=== PATIENT | male | born 1935 | race African-American/Black ===

== ENCOUNTER 2018-03-10 10:14 | Inpatient (IN) | payer MEDICARE, BC ==
[2018-03-10] VITALS (10 sets, daily range): BP systolic 90–135; BP diastolic 61–80
[~2018-03-10] VITALS: Ht 175.3 cm; Wt 89.1 kg
[~2018-03-10 10:14] MED LIST: AMI2 PO; ASPI-1159 PO; BIMA2.5D4 EACHEYE; CARV25TA47 PO; FURO40TA5 PO; LOSA50TA20 PO; SPIR25TA6 PO
[2018-03-10] MEDS ORDERED: FUROSEMIDE 40MG/4ML VIAL IV ONE (11:00)
[2018-03-10] MEDS ORDERED: NITROGLYCERIN 0.4MG TABLET SL SL PRN (11:00)
[2018-03-10] MEDS ORDERED: ASPIRIN 81MG TABLET PO ONE (11:00)
[2018-03-10] MEDS ORDERED: SODIUM CHLORIDE 0.9% 500 ML IV ONE (12:00)
[2018-03-10 12:24] LABS: BASOPHILS % 0.4 % (0.0-2.0); HEMATOCRIT. 41.5 % (42.0-52.0); HEMOGLOBIN. 13.2 g/dL (14.0-18.0); MEAN CORPUSCULAR HEMOGLOBIN 28.4 pg (28.0-32.0); MEAN CORPUSCULAR VOLUME 88.9 fL (80.0-94.0); MEAN PLATELET VOLUME 9.3 fl (7.4-10.4); MONOCYTES % 10.2 % (2.0-8.0); NEUTROPHILS % 70.4 % (40.0-76.0); PLATELET 154 x1000/uL (130-400); RED BLOOD CELL COUNT 4.66 mill/uL (4.7-6.1); RED CELL DISTRIBUTION WIDTH 17.9 % (11.6-14.6)
[2018-03-10] MEDS ORDERED: SODIUM CHLORIDE 0.9% 250 ML IV ONE (12:30)
[2018-03-10 12:31] LABS: CHLORIDE 102 mEq/L (98-107)
[2018-03-10 12:32] LABS: INR 1.4
[2018-03-10] MEDS: ASPIRIN 81MG EC TABLET PO SCH (15:45)
[2018-03-10] MEDS: CARVEDILOL 3.125 MG TABLET PO SCH (15:46)
[2018-03-10] MEDS: FUROSEMIDE 40MG/4ML VIAL IVP SCH (17:56)
[2018-03-10] MEDS: DOBUTAMINE 250MG PREMIX 250 ML IV SCH (21:10)
[2018-03-11] VITALS (12 sets, daily range): BP systolic 96–122; BP diastolic 48–83
[2018-03-11 06:26] LABS: BASOPHILS % 0.3 % (0.0-2.0); EOSINOPHILS % 1.9 % (0.0-5.0); HEMATOCRIT. 44.6 % (42.0-52.0); HEMOGLOBIN. 14.4 g/dL (14.0-18.0); LYMPHOCYTES % 17.4 % (20.0-50.0); MEAN CORPUSCULAR HEMOGLOBIN 28.6 pg (28.0-32.0); MEAN CORPUSCULAR VOLUME 88.5 fL (80.0-94.0); MEAN PLATELET VOLUME 9.1 fl (7.4-10.4); MONOCYTES % 9.5 % (2.0-8.0); NEUTROPHILS % 70.9 % (40.0-76.0); PLATELET 160 x1000/uL (130-400); RED BLOOD CELL COUNT 5.04 mill/uL (4.7-6.1); RED CELL DISTRIBUTION WIDTH 17.8 % (11.6-14.6)
[2018-03-11] MEDS: FUROSEMIDE 40MG/4ML VIAL IVP SCH ×2 (06:32→17:23)
[2018-03-11 06:49] LABS: CREATINE KINASE MB FRACTION 2.8 ng/mL (0.5-3.6)
[2018-03-11 06:51] LABS: CHLORIDE 104 mEq/L (98-107)
[2018-03-11 06:58] LABS: PHOSPHORUS 3.9 mg/dL (2.5-4.9)
[2018-03-11 06:59] LABS: LDL CHOLESTEROL 75 mg/dL (5-100)
[2018-03-11 07:00] LABS: CREATINE KINASE 111 IU/L (39-308); HDL CHOLESTEROL 28 mg/dL (40-59)
[2018-03-11] MEDS: ASPIRIN 81MG EC TABLET PO SCH (09:00)
[2018-03-11] MEDS: CARVEDILOL 3.125 MG TABLET PO SCH ×2 (10:30→20:05)
[2018-03-11] MEDS: DOBUTAMINE 250MG PREMIX 250 ML IV SCH (20:04)
[2018-03-12] VITALS (12 sets, daily range): BP systolic 100–137; BP diastolic 50–80
[2018-03-12] MEDS: FUROSEMIDE 40MG/4ML VIAL IVP SCH ×2 (06:34→17:24)
[2018-03-12 06:47] LABS: BASOPHILS % 0.3 % (0.0-2.0); EOSINOPHILS % 0.7 % (0.0-5.0); HEMATOCRIT. 41.1 % (42.0-52.0); HEMOGLOBIN. 13.1 g/dL (14.0-18.0); LYMPHOCYTES % 16.3 % (20.0-50.0); MEAN CORPUSCULAR HEMOGLOBIN 28.4 pg (28.0-32.0); MEAN PLATELET VOLUME 9.3 fl (7.4-10.4); NEUTROPHILS % 69.7 % (40.0-76.0); PLATELET 154 x1000/uL (130-400); RED BLOOD CELL COUNT 4.62 mill/uL (4.7-6.1); RED CELL DISTRIBUTION WIDTH 17.7 % (11.6-14.6)
[2018-03-12 07:24] LABS: CHLORIDE 101 mEq/L (98-107)
[2018-03-12 07:32] LABS: PHOSPHORUS 3.4 mg/dL (2.5-4.9)
[2018-03-12] MEDS: ASPIRIN 81MG EC TABLET PO SCH (09:06)
[2018-03-12] MEDS: CARVEDILOL 3.125 MG TABLET PO SCH ×2 (09:06→21:15)
[2018-03-12] MEDS: GUAIFENESIN 600MG ER TABLET PO SCH ×2 (10:28→21:15)
[2018-03-12] MEDS ORDERED: ACETYLCYSTEINE 200MG/ML 20% VIAL 4ML PO SCH (14:00)
[2018-03-12] MEDS ORDERED: THROAT LOZENGES-BENZOCAINE/MENTH/CETYLPYRD CL LOZENGES MM PRN (17:30)
[2018-03-12] MEDS: DOBUTAMINE 250MG PREMIX 250 ML IV SCH (22:18)
[2018-03-13] VITALS (12 sets, daily range): BP systolic 88–115; BP diastolic 55–80
[2018-03-13] MEDS: FUROSEMIDE 40MG/4ML VIAL IVP SCH ×2 (06:20→17:15)
[2018-03-13 06:39] LABS: BASOPHILS % 0.1 % (0.0-2.0); EOSINOPHILS % 1.9 % (0.0-5.0); HEMATOCRIT. 41.7 % (42.0-52.0); HEMOGLOBIN. 13.4 g/dL (14.0-18.0); LYMPHOCYTES % 16.5 % (20.0-50.0); MEAN CORPUSCULAR HEMOGLOBIN 28.3 pg (28.0-32.0); MEAN CORPUSCULAR VOLUME 88.1 fL (80.0-94.0); MEAN PLATELET VOLUME 9.3 fl (7.4-10.4); MONOCYTES % 9.6 % (2.0-8.0); NEUTROPHILS % 71.9 % (40.0-76.0); PLATELET 172 x1000/uL (130-400); RED BLOOD CELL COUNT 4.73 mill/uL (4.7-6.1); RED CELL DISTRIBUTION WIDTH 17.9 % (11.6-14.6)
[2018-03-13 08:20] LABS: PHOSPHORUS 3.4 mg/dL (2.5-4.9)
[2018-03-13] MEDS: GUAIFENESIN 600MG ER TABLET PO SCH ×2 (08:47→21:37)
[2018-03-13] MEDS: ASPIRIN 81MG EC TABLET PO SCH (08:47)
[2018-03-13] MEDS: CARVEDILOL 3.125 MG TABLET PO SCH ×2 (08:50→21:00)
[2018-03-13] MEDS ORDERED: SODIUM CHLORIDE 0.9% 250 ML IV ONE (17:45)
[2018-03-13] MEDS: DOBUTAMINE 250MG PREMIX 250 ML IV SCH (21:38)
[2018-03-14] VITALS (12 sets, daily range): BP systolic 104–128; BP diastolic 58–90
[2018-03-14 06:14] LABS: BASOPHILS % 0.4 % (0.0-2.0); EOSINOPHILS % 2.2 % (0.0-5.0); HEMATOCRIT. 41.8 % (42.0-52.0); HEMOGLOBIN. 13.4 g/dL (14.0-18.0); LYMPHOCYTES % 19.6 % (20.0-50.0); MEAN CORPUSCULAR HEMOGLOBIN 28.4 pg (28.0-32.0); MEAN CORPUSCULAR VOLUME 88.5 fL (80.0-94.0); MONOCYTES % 8.7 % (2.0-8.0); NEUTROPHILS % 69.1 % (40.0-76.0); PLATELET 160 x1000/uL (130-400); RED BLOOD CELL COUNT 4.73 mill/uL (4.7-6.1); RED CELL DISTRIBUTION WIDTH 17.6 % (11.6-14.6)
[2018-03-14] MEDS: GUAIFENESIN 600MG ER TABLET PO SCH ×2 (09:00→21:05)
[2018-03-14] MEDS: CARVEDILOL 3.125 MG TABLET PO SCH ×2 (09:00→21:05)
[2018-03-14] MEDS: ASPIRIN 81MG EC TABLET PO SCH (09:00)
[2018-03-14] MEDS: FUROSEMIDE 40MG/4ML VIAL IVP SCH ×2 (09:49→17:51)
[2018-03-14] MEDS ORDERED: PROPOFOL 200MG/20ML VIAL IV ONE (10:06)
[2018-03-14] MEDS ORDERED: LIDOCAINE HCL/PF 1% 10 MG/ML 5ML VIAL ONE (10:07)
[2018-03-14] MEDS ORDERED: SIMETHICONE 40 MG/0.6 ML 30ML ONE (10:23)
[2018-03-14 11:04] LABS: PHOSPHORUS 2.6 mg/dL (2.5-4.9)
[2018-03-14] MEDS: DOBUTAMINE 250MG PREMIX 250 ML IV SCH (21:06)
[2018-03-15] VITALS (12 sets, daily range): BP systolic 94–117; BP diastolic 50–88
[2018-03-15] MEDS: FUROSEMIDE 40MG/4ML VIAL IVP SCH ×2 (06:54→18:18)
[2018-03-15 07:22] LABS: BASOPHILS % 0.2 % (0.0-2.0); EOSINOPHILS % 1.9 % (0.0-5.0); HEMATOCRIT. 40.3 % (42.0-52.0); HEMOGLOBIN. 12.9 g/dL (14.0-18.0); LYMPHOCYTES % 16.8 % (20.0-50.0); MEAN CORPUSCULAR HEMOGLOBIN 28.1 pg (28.0-32.0); MEAN CORPUSCULAR VOLUME 87.5 fL (80.0-94.0); MEAN PLATELET VOLUME 9.3 fl (7.4-10.4); MONOCYTES % 12.1 % (2.0-8.0); PLATELET 170 x1000/uL (130-400); RED CELL DISTRIBUTION WIDTH 17.3 % (11.6-14.6)
[2018-03-15 08:04] LABS: PHOSPHORUS 2.7 mg/dL (2.5-4.9)
[2018-03-15] MEDS: CARVEDILOL 3.125 MG TABLET PO SCH ×2 (09:29→20:54)
[2018-03-15] MEDS: ASPIRIN 81MG EC TABLET PO SCH (09:29)
[2018-03-15] MEDS: GUAIFENESIN 600MG ER TABLET PO SCH ×2 (09:29→20:55)
[2018-03-15] MEDS ORDERED: PANTOPRAZOLE SODIUM 40 MG/VIAL IV SCH (11:15)
[2018-03-15] MEDS: DOBUTAMINE 250MG PREMIX 250 ML IV SCH (20:55)
[2018-03-16] VITALS (15 sets, daily range): BP systolic 92–125; BP diastolic 54–84
[2018-03-16] MEDS: FUROSEMIDE 40MG/4ML VIAL IVP SCH (06:19)
[2018-03-16 07:19] LABS: BASOPHILS % 0.5 % (0.0-2.0); EOSINOPHILS % 2.1 % (0.0-5.0); HEMATOCRIT. 41.4 % (42.0-52.0); HEMOGLOBIN. 13.4 g/dL (14.0-18.0); LYMPHOCYTES % 26.5 % (20.0-50.0); MEAN CORPUSCULAR HEMOGLOBIN 28.4 pg (28.0-32.0); MEAN CORPUSCULAR VOLUME 87.8 fL (80.0-94.0); MEAN PLATELET VOLUME 9.4 fl (7.4-10.4); MONOCYTES % 10.6 % (2.0-8.0); NEUTROPHILS % 60.3 % (40.0-76.0); PLATELET 153 x1000/uL (130-400); RED BLOOD CELL COUNT 4.72 mill/uL (4.7-6.1); RED CELL DISTRIBUTION WIDTH 17.8 % (11.6-14.6)
[2018-03-16] MEDS: OMEPRAZOLE 20MG CAPSULE EXTENDED RELEASE PO SCH (07:45)
[2018-03-16] MEDS: GUAIFENESIN 600MG ER TABLET PO SCH ×2 (09:37→20:39)
[2018-03-16] MEDS: CARVEDILOL 3.125 MG TABLET PO SCH ×2 (09:38→20:34)
[2018-03-16] MEDS: ASPIRIN 81MG EC TABLET PO SCH (09:38)
[2018-03-16] MEDS ORDERED: AMIODARONE HCL 200 MG TABLET PO SCH (10:00)
[2018-03-16] MEDS: LOSARTAN POTASSIUM 25 MG TABLET PO SCH (10:15)
[2018-03-16] MEDS: SPIRONOLACTONE 25MG TABLET PO SCH (11:03)
[2018-03-16] MEDS: FUROSEMIDE 40MG TABLET PO SCH (20:34)
[2018-03-17] VITALS (11 sets, daily range): BP systolic 95–118; BP diastolic 62–74
[2018-03-17 05:48] LABS: HEMATOCRIT. 43.4 % (42.0-52.0); HEMOGLOBIN. 13.9 g/dL (14.0-18.0); MEAN CORPUSCULAR HEMOGLOBIN 28.5 pg (28.0-32.0); MEAN CORPUSCULAR VOLUME 88.9 fL (80.0-94.0); MEAN PLATELET VOLUME 10.2 fl (7.4-10.4); RED BLOOD CELL COUNT 4.88 mill/uL (4.7-6.1); RED CELL DISTRIBUTION WIDTH 17.8 % (11.6-14.6)
[2018-03-17 05:59] LABS: CHLORIDE 99 mEq/L (98-107)
[2018-03-17] MEDS: FUROSEMIDE 40MG TABLET PO SCH (08:16)
[2018-03-17] MEDS: GUAIFENESIN 600MG ER TABLET PO SCH (08:16)
[2018-03-17] MEDS: OMEPRAZOLE 20MG CAPSULE EXTENDED RELEASE PO SCH (08:16)
[2018-03-17] MEDS: ASPIRIN 81MG EC TABLET PO SCH (08:17)
[2018-03-17] MEDS: SPIRONOLACTONE 25MG TABLET PO SCH (08:17)
[2018-03-17] MEDS: LOSARTAN POTASSIUM 25 MG TABLET PO SCH (08:17)
[2018-03-17] MEDS: CARVEDILOL 3.125 MG TABLET PO SCH (08:17)
[2018-03-17 12:11] LABS: PLATELET ESTIMATE NORMAL
[2018-03-17 12:12] LABS: PLATELET 197 x1000/uL (130-400)
== END 2018-03-17 12:45 | disposition home health service (06) | DRG 682 ==
LOC: ER 10:43 → EDBEDREQ 12:32 → EDBEDREQSVC 12:32 → EDBEDREQTM 12:32 → MERGE 12:40 → 5EST 12:40 → EDBEDREQTM 12:44 → EDBEDREQ 12:44 → ENRESERV 12:56 → ER 13:51
PROVIDERS: ADMIT Internal Medicine; ATTEND Internal Medicine
PROC: 0DB68ZX Excision of Stomach, Via Natural or Artificial Opening Endoscopic, Diagnostic (ICD-10-PCS; principal; 2018-03-14 10:00)
DX: N17.9 Acute kidney failure, unspecified (principal); I50.23 Acute on chronic systolic (congestive) heart failure; I13.0 Hypertensive heart and chronic kidney disease with heart failure and stage 1 through stage 4 chronic kidney disease, or unspecified chronic kidney disease; E87.1 Hypo-osmolality and hyponatremia; I42.0 Dilated cardiomyopathy; I48.0 Paroxysmal atrial fibrillation; N18.9 Chronic kidney disease, unspecified; I25.10 Atherosclerotic heart disease of native coronary artery without angina pectoris; E66.9 Obesity, unspecified; E78.00 Pure hypercholesterolemia, unspecified; E78.5 Hyperlipidemia, unspecified; G47.30 Sleep apnea, unspecified; K29.50 Unspecified chronic gastritis without bleeding; K44.9 Diaphragmatic hernia without obstruction or gangrene; R13.10 Dysphagia, unspecified; R31.0 Gross hematuria; Z77.090 Contact with and (suspected) exposure to asbestos; I49.5 Sick sinus syndrome; T50.2X5A Adverse effect of carbonic-anhydrase inhibitors, benzothiadiazides and other diuretics, initial encounter; I95.9 Hypotension, unspecified; R26.81 Unsteadiness on feet; R63.4 Abnormal weight loss; Z79.82 Long term (current) use of aspirin; Z79.899 Other long term (current) drug therapy; Z85.46 Personal history of malignant neoplasm of prostate; Z68.29 Body mass index [BMI] 29.0-29.9, adult; Y92.89 Other specified places as the place of occurrence of the external cause; Z95.810 Presence of automatic (implantable) cardiac defibrillator
CPT/HCPCS: 36415; 71045; 80048; 80053; 80061; 82550; 82553; 83735; 83880; 84100; 84134; 84484; 85025; 85610; 88305; 88312; 88313; 92610; 93005; 93970; 96360; 99291; C9113; J1250; J1940; J2704; J3490; J7040; J7050; A4315

== ENCOUNTER 2018-04-01 14:34 | Inpatient (IN) | payer MEDICARE, BC ==
[~2018-04-01] VITALS: Ht 175.3 cm; Wt 90.7 kg
[~2018-04-01 14:34] MED LIST changes: -AMI2 PO; -BIMA2.5D4 EACHEYE; -CARV25TA47 PO; -FURO40TA5 PO
[2018-04-01 16:31] LABS: BASOPHILS % 0.1 % (0.0-2.0); EOSINOPHILS % 0.7 % (0.0-5.0); HEMATOCRIT. 46.2 % (42.0-52.0); HEMOGLOBIN. 14.7 g/dL (14.0-18.0); LYMPHOCYTES % 13.1 % (20.0-50.0); MEAN CORPUSCULAR HEMOGLOBIN 28.6 pg (28.0-32.0); MEAN CORPUSCULAR VOLUME 89.7 fL (80.0-94.0); MEAN PLATELET VOLUME 9.9 fl (7.4-10.4); NEUTROPHILS % 78.1 % (40.0-76.0); PLATELET 170 x1000/uL (130-400); RED BLOOD CELL COUNT 5.15 mill/uL (4.7-6.1); RED CELL DISTRIBUTION WIDTH 18.8 % (11.6-14.6)
[2018-04-01 16:38] LABS: CHLORIDE 102 mEq/L (98-107); INR 1.5; PROTHROMBIN TIME 15.3 sec (9.1-11.1)
[2018-04-01 16:46] LABS: ETHANOL BLOOD < 10 mg/dL
[2018-04-01] MEDS ORDERED: DOBUTAMINE 250MG PREMIX 250 ML IV NR (17:15)
[2018-04-01] MEDS ORDERED: POTASSIUM CHLORIDE 20MEQ TABLET SR PO NR (17:15)
[2018-04-01] MEDS ORDERED: FUROSEMIDE 40MG/4ML VIAL IVP NR (17:15)
[2018-04-01] MEDS ORDERED: FUROSEMIDE 20MG/2ML VIAL IVP ONE (18:15)
[2018-04-01 21:30] VITALS: BP 107/60
[2018-04-01 21:46] VITALS: BP 107/60
[2018-04-01] MEDS ORDERED: DOBUTAMINE 250MG PREMIX 250 ML IV SCH ×2 (22:30)
[2018-04-02] VITALS (12 sets, daily range): BP systolic 90–125; BP diastolic 53–80
[2018-04-02] MEDS: FUROSEMIDE 40MG/4ML VIAL IVP SCH ×2 (09:33→17:44)
[2018-04-02] MEDS: POTASSIUM CHLORIDE 20MEQ TABLET SR PO SCH ×2 (09:33→17:52)
[2018-04-02] MEDS: DOCUSATE SODIUM 250MG CAPSULE PO SCH (10:00)
[2018-04-02] MEDS: SPIRONOLACTONE 25MG TABLET PO SCH (10:52)
[2018-04-02] MEDS: ASPIRIN 81MG TABLET PO SCH (10:52)
[2018-04-02] MEDS: LOSARTAN POTASSIUM 50 MG TABLET PO SCH (10:52)
[2018-04-02 14:03] LABS: BASOPHILS % 0.2 % (0.0-2.0); EOSINOPHILS % 1.1 % (0.0-5.0); HEMATOCRIT. 43.1 % (42.0-52.0); LYMPHOCYTES % 10.6 % (20.0-50.0); MEAN CORPUSCULAR HEMOGLOBIN 28.5 pg (28.0-32.0); MEAN CORPUSCULAR VOLUME 87.7 fL (80.0-94.0); MEAN PLATELET VOLUME 10.2 fl (7.4-10.4); MONOCYTES % 6.2 % (2.0-8.0); NEUTROPHILS % 81.9 % (40.0-76.0); PLATELET 165 x1000/uL (130-400); RED BLOOD CELL COUNT 4.92 mill/uL (4.7-6.1); RED CELL DISTRIBUTION WIDTH 17.9 % (11.6-14.6)
[2018-04-02 14:10] LABS: CHLORIDE 104 mEq/L (98-107)
[2018-04-02 14:18] LABS: CREATINE KINASE 108 IU/L (39-308)
[2018-04-02 14:21] LABS: CREATINE KINASE MB FRACTION 2.3 ng/mL (0.5-3.6)
[2018-04-02] MEDS: DOBUTAMINE 250MG PREMIX 250 ML IV SCH ×2 (14:24→19:16)
[2018-04-03] VITALS (12 sets, daily range): BP systolic 92–152; BP diastolic 50–78
[2018-04-03] MEDS: DOCUSATE SODIUM 250MG CAPSULE PO SCH (09:00)
[2018-04-03] MEDS: LOSARTAN POTASSIUM 50 MG TABLET PO SCH (09:00)
[2018-04-03 09:10] LABS: HEMATOCRIT. 42.6 % (42.0-52.0); HEMOGLOBIN. 13.7 g/dL (14.0-18.0); MEAN CORPUSCULAR HEMOGLOBIN 28.4 pg (28.0-32.0); MEAN PLATELET VOLUME 9.8 fl (7.4-10.4); PLATELET 165 x1000/uL (130-400); RED BLOOD CELL COUNT 4.84 mill/uL (4.7-6.1); RED CELL DISTRIBUTION WIDTH 18.4 % (11.6-14.6)
[2018-04-03 09:24] LABS: CHLORIDE 103 mEq/L (98-107)
[2018-04-03 09:33] LABS: PHOSPHORUS 2.9 mg/dL (2.5-4.9)
[2018-04-03] MEDS: POTASSIUM CHLORIDE 20MEQ TABLET SR PO SCH ×2 (12:09→16:55)
[2018-04-03] MEDS: ASPIRIN 81MG TABLET PO SCH (12:09)
[2018-04-03] MEDS: SPIRONOLACTONE 25MG TABLET PO SCH (12:17)
[2018-04-03] MEDS: FUROSEMIDE 40MG/4ML VIAL IVP SCH ×2 (12:17→16:54)
[2018-04-03] MEDS: DOBUTAMINE 250MG PREMIX 250 ML IV SCH (13:17)
[2018-04-03 16:17] LABS: PLATELET ESTIMATE NORMAL
[2018-04-04] VITALS (12 sets, daily range): BP systolic 97–118; BP diastolic 58–73
[2018-04-04 08:24] LABS: BASOPHILS % 0.3 % (0.0-2.0); HEMATOCRIT. 42.4 % (42.0-52.0); HEMOGLOBIN. 13.8 g/dL (14.0-18.0); LYMPHOCYTES % 7.5 % (20.0-50.0); MEAN CORPUSCULAR HEMOGLOBIN 28.5 pg (28.0-32.0); MEAN CORPUSCULAR VOLUME 87.7 fL (80.0-94.0); MEAN PLATELET VOLUME 9.7 fl (7.4-10.4); NEUTROPHILS % 81.2 % (40.0-76.0); PLATELET 163 x1000/uL (130-400); RED BLOOD CELL COUNT 4.83 mill/uL (4.7-6.1); RED CELL DISTRIBUTION WIDTH 17.9 % (11.6-14.6)
[2018-04-04] MEDS: ASPIRIN 81MG TABLET PO SCH (08:59)
[2018-04-04] MEDS: MEGESTROL ACETATE 400 MG/10 ML UDC PO SCH (08:59)
[2018-04-04] MEDS: LOSARTAN POTASSIUM 50 MG TABLET PO SCH (09:00)
[2018-04-04] MEDS: FUROSEMIDE 40MG/4ML VIAL IVP SCH ×2 (09:01→17:22)
[2018-04-04] MEDS: DOCUSATE SODIUM 250MG CAPSULE PO SCH (09:01)
[2018-04-04] MEDS: SPIRONOLACTONE 25MG TABLET PO SCH (09:02)
[2018-04-04] MEDS: DOBUTAMINE 250MG PREMIX 250 ML IV SCH (17:22)
[2018-04-04 21:57] LABS: CLARITY URINE CLEAR (CLEAR); COLOR URINE YELLOW (YELLOW); KETONES URINE NEGATIVE (NEGATIVE); LEUKOCYTE ESTERASE URINE 3+ (NEGATIVE); NITRITE URINE NEGATIVE (NEGATIVE); OCCULT BLOOD URINE NEGATIVE (NEGATIVE); PROTEIN URINE NEGATIVE (NEGATIVE); SPECIFIC GRAVITY URINE 1.009 (1.005-1.030)
[2018-04-05] VITALS (11 sets, daily range): BP systolic 102–138; BP diastolic 59–73
[2018-04-05 07:04] LABS: BASOPHILS % 0.1 % (0.0-2.0); HEMATOCRIT. 42.4 % (42.0-52.0); HEMOGLOBIN. 13.7 g/dL (14.0-18.0); LYMPHOCYTES % 11.2 % (20.0-50.0); MEAN CORPUSCULAR HEMOGLOBIN 28.1 pg (28.0-32.0); MEAN CORPUSCULAR VOLUME 87.1 fL (80.0-94.0); MEAN PLATELET VOLUME 9.5 fl (7.4-10.4); MONOCYTES % 6.5 % (2.0-8.0); NEUTROPHILS % 75.2 % (40.0-76.0); PLATELET 158 x1000/uL (130-400); RED BLOOD CELL COUNT 4.87 mill/uL (4.7-6.1); RED CELL DISTRIBUTION WIDTH 18.6 % (11.6-14.6)
[2018-04-05] MEDS: MEGESTROL ACETATE 400 MG/10 ML UDC PO SCH (08:16)
[2018-04-05] MEDS: FUROSEMIDE 40MG/4ML VIAL IVP SCH ×2 (08:17→17:52)
[2018-04-05] MEDS: DOCUSATE SODIUM 250MG CAPSULE PO SCH (08:17)
[2018-04-05] MEDS: LOSARTAN POTASSIUM 50 MG TABLET PO SCH (08:18)
[2018-04-05] MEDS: ASPIRIN 81MG TABLET PO SCH (08:18)
[2018-04-05] MEDS: SPIRONOLACTONE 25MG TABLET PO SCH (08:18)
[2018-04-05] MEDS: DOBUTAMINE 250MG PREMIX 250 ML IV SCH (09:18)
[2018-04-06] VITALS (12 sets, daily range): BP systolic 95–125; BP diastolic 48–72
[2018-04-06] MEDS: DOBUTAMINE 250MG PREMIX 250 ML IV SCH (02:58)
[2018-04-06 07:41] LABS: BASOPHILS % 0.2 % (0.0-2.0); EOSINOPHILS % 7.5 % (0.0-5.0); HEMOGLOBIN. 13.6 g/dL (14.0-18.0); LYMPHOCYTES % 8.6 % (20.0-50.0); MEAN CORPUSCULAR HEMOGLOBIN 28.3 pg (28.0-32.0); MEAN CORPUSCULAR VOLUME 87.6 fL (80.0-94.0); MEAN PLATELET VOLUME 9.8 fl (7.4-10.4); MONOCYTES % 5.9 % (2.0-8.0); NEUTROPHILS % 77.8 % (40.0-76.0); PLATELET 162 x1000/uL (130-400); RED BLOOD CELL COUNT 4.79 mill/uL (4.7-6.1); RED CELL DISTRIBUTION WIDTH 18.4 % (11.6-14.6)
[2018-04-06 08:00] LABS: CHLORIDE 102 mEq/L (98-107)
[2018-04-06] MEDS: ASPIRIN 81MG TABLET PO SCH (08:54)
[2018-04-06] MEDS: SPIRONOLACTONE 25MG TABLET PO SCH (08:54)
[2018-04-06] MEDS: FUROSEMIDE 40MG/4ML VIAL IVP SCH (08:54)
[2018-04-06] MEDS: DOCUSATE SODIUM 250MG CAPSULE PO SCH (08:54)
[2018-04-06] MEDS: MEGESTROL ACETATE 400 MG/10 ML UDC PO SCH (08:54)
[2018-04-06] MEDS: LOSARTAN POTASSIUM 50 MG TABLET PO SCH (09:42)
[2018-04-06] MEDS ORDERED: POTASSIUM CHLORIDE 20MEQ TABLET SR PO NR (10:45)
[2018-04-06] MEDS: FUROSEMIDE 80MG TABLET PO SCH ×2 (11:13→17:49)
[2018-04-06] MEDS ORDERED: DOBUTAMINE 250MG PREMIX 250 ML IV SCH (12:00)
[2018-04-06 19:37] LABS: CHLORIDE 102 mEq/L (98-107)
[2018-04-07] VITALS (10 sets, daily range): BP systolic 99–125; BP diastolic 48–75
[2018-04-07 07:15] LABS: BASOPHILS % 0.5 % (0.0-2.0); EOSINOPHILS % 8.4 % (0.0-5.0); HEMOGLOBIN. 15.4 g/dL (14.0-18.0); LYMPHOCYTES % 14.9 % (20.0-50.0); MEAN CORPUSCULAR HEMOGLOBIN 28.3 pg (28.0-32.0); MEAN CORPUSCULAR VOLUME 88.5 fL (80.0-94.0); MEAN PLATELET VOLUME 9.4 fl (7.4-10.4); NEUTROPHILS % 68.2 % (40.0-76.0); PLATELET 170 x1000/uL (130-400); RED BLOOD CELL COUNT 5.43 mill/uL (4.7-6.1); RED CELL DISTRIBUTION WIDTH 18.5 % (11.6-14.6)
[2018-04-07] MEDS: MEGESTROL ACETATE 400 MG/10 ML UDC PO SCH (08:42)
[2018-04-07] MEDS: SPIRONOLACTONE 25MG TABLET PO SCH (08:43)
[2018-04-07] MEDS: DOCUSATE SODIUM 250MG CAPSULE PO SCH (08:43)
[2018-04-07] MEDS: ASPIRIN 81MG TABLET PO SCH (08:43)
[2018-04-07 08:59] LABS: CHLORIDE 99 mEq/L (98-107)
[2018-04-07] MEDS ORDERED: LOSARTAN POTASSIUM 25 MG TABLET PO SCH (09:00)
[2018-04-07] MEDS: FUROSEMIDE 40MG TABLET PO SCH ×2 (10:10→17:30)
[2018-04-07 13:46] LABS: CLARITY URINE CLEAR (CLEAR); COLOR URINE YELLOW (YELLOW); KETONES URINE NEGATIVE (NEGATIVE); LEUKOCYTE ESTERASE URINE NEGATIVE (NEGATIVE); NITRITE URINE NEGATIVE (NEGATIVE); OCCULT BLOOD URINE NEGATIVE (NEGATIVE); PH URINE 7.5 (4.5-8.0); PROTEIN URINE NEGATIVE (NEGATIVE); SPECIFIC GRAVITY URINE 1.012 (1.005-1.030)
== END 2018-04-07 17:45 | DRG 682 ==
LOC: ER 16:09 → 5EST 18:05 → ENRESERV 18:51
PROVIDERS: ADMIT Internal Medicine; ATTEND Internal Medicine
DX: N17.9 Acute kidney failure, unspecified (principal); I50.23 Acute on chronic systolic (congestive) heart failure; I13.0 Hypertensive heart and chronic kidney disease with heart failure and stage 1 through stage 4 chronic kidney disease, or unspecified chronic kidney disease; I42.0 Dilated cardiomyopathy; N18.9 Chronic kidney disease, unspecified; I48.0 Paroxysmal atrial fibrillation; G47.33 Obstructive sleep apnea (adult) (pediatric); E66.9 Obesity, unspecified; R26.81 Unsteadiness on feet; E78.00 Pure hypercholesterolemia, unspecified; I49.5 Sick sinus syndrome; I95.9 Hypotension, unspecified; E78.5 Hyperlipidemia, unspecified; E87.6 Hypokalemia; I25.10 Atherosclerotic heart disease of native coronary artery without angina pectoris; R29.6 Repeated falls; Z79.82 Long term (current) use of aspirin; Z85.46 Personal history of malignant neoplasm of prostate; Z95.810 Presence of automatic (implantable) cardiac defibrillator; Z79.899 Other long term (current) drug therapy; Z68.29 Body mass index [BMI] 29.0-29.9, adult
CPT/HCPCS: 36415; 71045; 78582; 80048; 80053; 81003; 82550; 82553; 82570; 83735; 83880; 83935; 84100; 84300; 84443; 84484; 85025; 85379; 85610; 92523; 93005; 93970; 93971; 96374; 97116; 97162; 97166; 97530; 99285; A9558; G0482; J1250; J1940

== ENCOUNTER 2018-04-07 17:50 | Inpatient (IN) | payer MEDICARE, BC ==
[~2018-04-07] VITALS: Ht 167.6 cm; Wt 135.8 kg
[2018-04-07 18:00] VITALS: BP 97/64
[2018-04-07 20:00] VITALS: BP_SYST 91; BP_SYST 94; BP_DIAS 55; BP_DIAS 56; BP_DIAS 63
[2018-04-07] MEDS: FUROSEMIDE 40MG TABLET PO SCH (22:16)
[2018-04-08 06:00] VITALS: BP 99/65
[2018-04-08 08:00] VITALS: BP 85/54
[2018-04-08 08:25] LABS: BASOPHILS % 1.2 % (0.0-2.0); EOSINOPHILS % 11.2 % (0.0-5.0); HEMATOCRIT. 49.9 % (42.0-52.0); HEMOGLOBIN. 16.1 g/dL (14.0-18.0); MEAN CORPUSCULAR HEMOGLOBIN 28.3 pg (28.0-32.0); MEAN CORPUSCULAR VOLUME 87.9 fL (80.0-94.0); MONOCYTES % 7.6 % (2.0-8.0); PLATELET 198 x1000/uL (130-400); RED BLOOD CELL COUNT 5.68 mill/uL (4.7-6.1); RED CELL DISTRIBUTION WIDTH 18.8 % (11.6-14.6)
[2018-04-08 08:54] LABS: CHLORIDE 98 mEq/L (98-107)
[2018-04-08] MEDS: DOCUSATE SODIUM 250MG CAPSULE PO SCH (09:15)
[2018-04-08] MEDS: LOSARTAN POTASSIUM 25 MG TABLET PO SCH (09:16)
[2018-04-08] MEDS: ASPIRIN 81MG TABLET PO SCH (09:16)
[2018-04-08] MEDS: FUROSEMIDE 40MG TABLET PO SCH ×2 (09:16→21:00)
[2018-04-08] MEDS: MEGESTROL ACETATE 400 MG/10 ML UDC PO SCH (09:16)
[2018-04-08] MEDS: SPIRONOLACTONE 25MG TABLET PO SCH (09:47)
[2018-04-08 20:00] VITALS: BP 95/62
[2018-04-09 08:00] VITALS: BP 110/72
[2018-04-09] MEDS: ASPIRIN 81MG TABLET PO SCH (09:38)
[2018-04-09] MEDS: DOCUSATE SODIUM 250MG CAPSULE PO SCH (09:38)
[2018-04-09] MEDS: FUROSEMIDE 40MG TABLET PO SCH ×2 (09:38→23:27)
[2018-04-09] MEDS: LOSARTAN POTASSIUM 25 MG TABLET PO SCH (09:38)
[2018-04-09] MEDS: MEGESTROL ACETATE 400 MG/10 ML UDC PO SCH ×2 (09:41→16:53)
[2018-04-09] MEDS: SPIRONOLACTONE 25MG TABLET PO SCH (09:41)
[2018-04-09 12:49] LABS: CHLORIDE 95 mEq/L (98-107)
[2018-04-09 12:54] LABS: PHOSPHORUS 2.4 mg/dL (2.5-4.9)
[2018-04-09 12:55] LABS: LDL CHOLESTEROL 101 mg/dL (5-100); TOTAL IRON BINDING CAPACITY 318 ug/dL (250-450)
[2018-04-09 12:57] LABS: CREATINE KINASE 52 IU/L (39-308); HDL CHOLESTEROL 32 mg/dL (40-59)
[2018-04-09 13:14] LABS: FOLIC ACID (FOLATE) SERUM 13.6 ng/mL (>5.38)
[2018-04-09 14:01] LABS: PROSTRATE SPECIFIC AG TOTAL 0.76 ng/mL (0.0-4.0)
[2018-04-09 14:26] VITALS: BP 108/65
[2018-04-09] MEDS ORDERED: POTASSIUM-SODIUM PHOSPHATE POWDER PACKET PO NR (16:15)
[2018-04-09 16:55] VITALS: BP 110/68
[2018-04-09 20:00] VITALS: BP 99/63
[2018-04-10 04:00] VITALS: BP 105/60
[2018-04-10 07:00] LABS: BASOPHILS % 1.1 % (0.0-2.0); EOSINOPHILS % 9.1 % (0.0-5.0); HEMATOCRIT. 45.4 % (42.0-52.0); HEMOGLOBIN. 14.6 g/dL (14.0-18.0); LYMPHOCYTES % 24.3 % (20.0-50.0); MEAN CORPUSCULAR HEMOGLOBIN 27.8 pg (28.0-32.0); MEAN CORPUSCULAR VOLUME 86.3 fL (80.0-94.0); MEAN PLATELET VOLUME 9.2 fl (7.4-10.4); MONOCYTES % 6.6 % (2.0-8.0); NEUTROPHILS % 58.9 % (40.0-76.0); PLATELET 202 x1000/uL (130-400); RED BLOOD CELL COUNT 5.26 mill/uL (4.7-6.1); RED CELL DISTRIBUTION WIDTH 18.5 % (11.6-14.6)
[2018-04-10 07:17] LABS: CHLORIDE 98 mEq/L (98-107)
[2018-04-10 07:30] LABS: PHOSPHORUS 2.7 mg/dL (2.5-4.9)
[2018-04-10 07:34] LABS: T4 FREE 1.73 ng/dL (0.76-1.46)
[2018-04-10 08:00] VITALS: BP 96/69
[2018-04-10] MEDS: SPIRONOLACTONE 25MG TABLET PO SCH (09:12)
[2018-04-10] MEDS: DOCUSATE SODIUM 250MG CAPSULE PO SCH (09:12)
[2018-04-10] MEDS: ASPIRIN 81MG TABLET PO SCH (09:12)
[2018-04-10] MEDS: LOSARTAN POTASSIUM 25 MG TABLET PO SCH (09:12)
[2018-04-10] MEDS: FUROSEMIDE 40MG TABLET PO SCH ×2 (09:12→22:18)
[2018-04-10] MEDS: MEGESTROL ACETATE 400 MG/10 ML UDC PO SCH ×2 (09:12→17:38)
[2018-04-10 20:00] VITALS: BP 100/64
[2018-04-11 07:00] VITALS: BP 122/84
[2018-04-11] MEDS: DOCUSATE SODIUM 250MG CAPSULE PO SCH (09:31)
[2018-04-11] MEDS: LOSARTAN POTASSIUM 25 MG TABLET PO SCH (09:31)
[2018-04-11] MEDS: FUROSEMIDE 40MG TABLET PO SCH ×2 (09:31→20:26)
[2018-04-11] MEDS: MEGESTROL ACETATE 400 MG/10 ML UDC PO SCH ×2 (09:31→17:16)
[2018-04-11] MEDS: ASPIRIN 81MG TABLET PO SCH (09:31)
[2018-04-11] MEDS: SPIRONOLACTONE 25MG TABLET PO SCH (09:32)
[2018-04-11] MEDS: ENOXAPARIN 40MG/0.4ML SYR SUBCUT SCH (09:32)
[2018-04-11] MEDS: BLOOD SUGAR DIAGNOSTIC STRIP TEST SCH (17:30)
[2018-04-11 20:00] VITALS: BP 104/69
[2018-04-12 06:38] LABS: BASOPHILS % 1.4 % (0.0-2.0); HEMATOCRIT. 44.9 % (42.0-52.0); HEMOGLOBIN. 14.9 g/dL (14.0-18.0); LYMPHOCYTES % 25.7 % (20.0-50.0); MEAN CORPUSCULAR HEMOGLOBIN 28.5 pg (28.0-32.0); MEAN CORPUSCULAR VOLUME 86.1 fL (80.0-94.0); MEAN PLATELET VOLUME 9.4 fl (7.4-10.4); MONOCYTES % 8.8 % (2.0-8.0); NEUTROPHILS % 53.1 % (40.0-76.0); PLATELET 198 x1000/uL (130-400); RED BLOOD CELL COUNT 5.21 mill/uL (4.7-6.1); RED CELL DISTRIBUTION WIDTH 18.7 % (11.6-14.6)
[2018-04-12 07:05] LABS: CHLORIDE 97 mEq/L (98-107)
[2018-04-12 07:10] LABS: PHOSPHORUS 2.2 mg/dL (2.5-4.9)
[2018-04-12 08:00] VITALS: BP 107/59
[2018-04-12] MEDS: FUROSEMIDE 40MG TABLET PO SCH ×2 (09:00→20:59)
[2018-04-12] MEDS: LOSARTAN POTASSIUM 25 MG TABLET PO SCH (09:00)
[2018-04-12] MEDS: SPIRONOLACTONE 25MG TABLET PO SCH (09:51)
[2018-04-12] MEDS: ENOXAPARIN 40MG/0.4ML SYR SUBCUT SCH (09:51)
[2018-04-12] MEDS: DOCUSATE SODIUM 250MG CAPSULE PO SCH (09:51)
[2018-04-12] MEDS: MEGESTROL ACETATE 400 MG/10 ML UDC PO SCH ×2 (09:51→17:42)
[2018-04-12] MEDS: ASPIRIN 81MG TABLET PO SCH (09:51)
[2018-04-12] MEDS ORDERED: POTASSIUM-SODIUM PHOSPHATE POWDER PACKET PO NR (10:30)
[2018-04-12] MEDS ORDERED: LACTULOSE 20G/30ML UDC PO NR (14:30)
[2018-04-12] MEDS: BLOOD SUGAR DIAGNOSTIC STRIP TEST SCH (17:55)
[2018-04-12 20:00] VITALS: BP 99/61
[2018-04-13 07:01] LABS: BASOPHILS % 1.5 % (0.0-2.0); EOSINOPHILS % 12.3 % (0.0-5.0); HEMATOCRIT. 44.3 % (42.0-52.0); HEMOGLOBIN. 14.5 g/dL (14.0-18.0); LYMPHOCYTES % 26.2 % (20.0-50.0); MEAN CORPUSCULAR HEMOGLOBIN 28.3 pg (28.0-32.0); MEAN CORPUSCULAR VOLUME 86.4 fL (80.0-94.0); MEAN PLATELET VOLUME 9.2 fl (7.4-10.4); MONOCYTES % 8.6 % (2.0-8.0); NEUTROPHILS % 51.4 % (40.0-76.0); PLATELET 192 x1000/uL (130-400); RED BLOOD CELL COUNT 5.13 mill/uL (4.7-6.1); RED CELL DISTRIBUTION WIDTH 18.8 % (11.6-14.6)
[2018-04-13 08:00] VITALS: BP 115/71
[2018-04-13 08:14] LABS: CHLORIDE 97 mEq/L (98-107)
[2018-04-13 08:23] LABS: PHOSPHORUS 2.5 mg/dL (2.5-4.9)
[2018-04-13] MEDS: LOSARTAN POTASSIUM 25 MG TABLET PO SCH (10:19)
[2018-04-13] MEDS: SPIRONOLACTONE 25MG TABLET PO SCH (10:19)
[2018-04-13] MEDS: DOCUSATE SODIUM 250MG CAPSULE PO SCH (10:19)
[2018-04-13] MEDS: FUROSEMIDE 40MG TABLET PO SCH ×2 (10:20→21:48)
[2018-04-13] MEDS: MEGESTROL ACETATE 400 MG/10 ML UDC PO SCH ×2 (10:20→17:32)
[2018-04-13] MEDS: ENOXAPARIN 40MG/0.4ML SYR SUBCUT SCH (10:20)
[2018-04-13] MEDS: ASPIRIN 81MG TABLET PO SCH (10:20)
[2018-04-13] MEDS ORDERED: POTASSIUM CHLORIDE 20MEQ TABLET SR PO NR (16:30)
[2018-04-13] MEDS: BLOOD SUGAR DIAGNOSTIC STRIP TEST SCH (17:32)
[2018-04-13 20:00] VITALS: BP 111/72
[2018-04-14] VITALS: BP 118/70
[2018-04-14 04:00] VITALS: BP 108/69
[2018-04-14 07:04] LABS: HEMATOCRIT. 44.9 % (42.0-52.0); HEMOGLOBIN. 14.5 g/dL (14.0-18.0); LYMPHOCYTES % 30.3 % (20.0-50.0); MEAN CORPUSCULAR VOLUME 86.4 fL (80.0-94.0); MEAN PLATELET VOLUME 9.5 fl (7.4-10.4); MONOCYTES % 8.7 % (2.0-8.0); NEUTROPHILS % 47.8 % (40.0-76.0); PLATELET 198 x1000/uL (130-400); RED CELL DISTRIBUTION WIDTH 18.8 % (11.6-14.6)
[2018-04-14 07:05] LABS: BASOPHILS % 1.5 % (0.0-2.0); EOSINOPHILS % 11.7 % (0.0-5.0)
[2018-04-14 07:06] LABS: CHLORIDE 99 mEq/L (98-107)
[2018-04-14 07:24] LABS: PHOSPHORUS 2.4 mg/dL (2.5-4.9)
[2018-04-14 07:58] VITALS: BP 87/48
[2018-04-14] MEDS: LOSARTAN POTASSIUM 25 MG TABLET PO SCH (09:00)
[2018-04-14] MEDS: SPIRONOLACTONE 25MG TABLET PO SCH (09:00)
[2018-04-14] MEDS: FUROSEMIDE 40MG TABLET PO SCH ×2 (09:00→21:17)
[2018-04-14] MEDS: DOCUSATE SODIUM 250MG CAPSULE PO SCH (09:20)
[2018-04-14] MEDS: ASPIRIN 81MG TABLET PO SCH (09:20)
[2018-04-14] MEDS: MEGESTROL ACETATE 400 MG/10 ML UDC PO SCH ×2 (09:21→16:34)
[2018-04-14] MEDS: ENOXAPARIN 40MG/0.4ML SYR SUBCUT SCH (09:21)
[2018-04-14] MEDS: POTASSIUM-SODIUM PHOSPHATE POWDER PACKET PO SCH ×2 (09:32→16:34)
[2018-04-14] MEDS: BLOOD SUGAR DIAGNOSTIC STRIP TEST SCH (16:32)
[2018-04-14 20:00] VITALS: BP 102/67
[2018-04-15 06:19] LABS: 25-HYDROXY VITAMIN D3 38 ng/mL (.)
[2018-04-15 07:41] LABS: BASOPHILS % 2.8 % (0.0-2.0); EOSINOPHILS % 9.5 % (0.0-5.0); HEMATOCRIT. 44.2 % (42.0-52.0); HEMOGLOBIN. 14.5 g/dL (14.0-18.0); LYMPHOCYTES % 27.4 % (20.0-50.0); MEAN CORPUSCULAR HEMOGLOBIN 28.4 pg (28.0-32.0); MEAN CORPUSCULAR VOLUME 86.7 fL (80.0-94.0); MONOCYTES % 11.4 % (2.0-8.0); NEUTROPHILS % 48.9 % (40.0-76.0); RED CELL DISTRIBUTION WIDTH 18.9 % (11.6-14.6)
[2018-04-15 08:03] VITALS: BP 115/72
[2018-04-15 08:05] LABS: CHLORIDE 100 mEq/L (98-107)
[2018-04-15 08:12] LABS: PHOSPHORUS 2.8 mg/dL (2.5-4.9)
[2018-04-15] MEDS: ENOXAPARIN 40MG/0.4ML SYR SUBCUT SCH (09:10)
[2018-04-15] MEDS: MEGESTROL ACETATE 400 MG/10 ML UDC PO SCH ×2 (09:10→17:56)
[2018-04-15] MEDS: ASPIRIN 81MG TABLET PO SCH (09:11)
[2018-04-15] MEDS: FUROSEMIDE 40MG TABLET PO SCH (09:11)
[2018-04-15] MEDS: LOSARTAN POTASSIUM 25 MG TABLET PO SCH (09:11)
[2018-04-15] MEDS: DOCUSATE SODIUM 250MG CAPSULE PO SCH (09:11)
[2018-04-15] MEDS: SPIRONOLACTONE 25MG TABLET PO SCH (09:12)
[2018-04-15] MEDS ORDERED: SODIUM POLYSTYRENE SULFONATE 15 G/60 ML BOT PO SCH (11:00)
[2018-04-15 14:28] LABS: PLATELET 192 x1000/uL (130-400)
[2018-04-15] MEDS: BLOOD SUGAR DIAGNOSTIC STRIP TEST SCH (17:56)
[2018-04-15 20:00] VITALS: BP 97/60
[2018-04-16 06:35] LABS: BASOPHILS % 2.9 % (0.0-2.0); HEMATOCRIT. 44.4 % (42.0-52.0); HEMOGLOBIN. 14.7 g/dL (14.0-18.0); LYMPHOCYTES % 24.9 % (20.0-50.0); MEAN CORPUSCULAR HEMOGLOBIN 28.6 pg (28.0-32.0); MEAN CORPUSCULAR VOLUME 86.7 fL (80.0-94.0); MEAN PLATELET VOLUME 10.1 fl (7.4-10.4); MONOCYTES % 10.6 % (2.0-8.0); NEUTROPHILS % 50.6 % (40.0-76.0); PLATELET 237 x1000/uL (130-400); RED BLOOD CELL COUNT 5.13 mill/uL (4.7-6.1); RED CELL DISTRIBUTION WIDTH 19.2 % (11.6-14.6)
[2018-04-16 06:51] LABS: CHLORIDE 99 mEq/L (98-107)
[2018-04-16 06:55] LABS: PHOSPHORUS 3.4 mg/dL (2.5-4.9)
[2018-04-16 08:17] VITALS: BP 93/55
[2018-04-16] MEDS: LOSARTAN POTASSIUM 25 MG TABLET PO SCH (09:00)
[2018-04-16] MEDS: ASPIRIN 81MG TABLET PO SCH (09:23)
[2018-04-16] MEDS: DOCUSATE SODIUM 250MG CAPSULE PO SCH (09:23)
[2018-04-16] MEDS: FUROSEMIDE 40MG TABLET PO SCH (09:23)
[2018-04-16] MEDS: MEGESTROL ACETATE 400 MG/10 ML UDC PO SCH ×2 (09:23→17:46)
[2018-04-16] MEDS: ENOXAPARIN 40MG/0.4ML SYR SUBCUT SCH (09:24)
[2018-04-16] MEDS: BLOOD SUGAR DIAGNOSTIC STRIP TEST SCH (17:50)
[2018-04-16 20:00] VITALS: BP 110/63
[2018-04-17 08:00] VITALS: BP 108/62
[2018-04-17 09:55] LABS: BASOPHILS % 1.3 % (0.0-2.0); EOSINOPHILS % 12.1 % (0.0-5.0); HEMATOCRIT. 44.2 % (42.0-52.0); HEMOGLOBIN. 14.5 g/dL (14.0-18.0); LYMPHOCYTES % 31.9 % (20.0-50.0); MEAN CORPUSCULAR HEMOGLOBIN 28.5 pg (28.0-32.0); MEAN CORPUSCULAR VOLUME 86.8 fL (80.0-94.0); MEAN PLATELET VOLUME 9.4 fl (7.4-10.4); MONOCYTES % 9.8 % (2.0-8.0); NEUTROPHILS % 44.9 % (40.0-76.0); PLATELET 195 x1000/uL (130-400); RED BLOOD CELL COUNT 5.09 mill/uL (4.7-6.1); RED CELL DISTRIBUTION WIDTH 19.2 % (11.6-14.6)
[2018-04-17] MEDS: ASPIRIN 81MG TABLET PO SCH (10:00)
[2018-04-17] MEDS: MEGESTROL ACETATE 400 MG/10 ML UDC PO SCH ×2 (10:00→16:52)
[2018-04-17] MEDS: LOSARTAN POTASSIUM 25 MG TABLET PO SCH (10:01)
[2018-04-17] MEDS: FUROSEMIDE 40MG TABLET PO SCH (10:01)
[2018-04-17] MEDS: DOCUSATE SODIUM 250MG CAPSULE PO SCH (10:01)
[2018-04-17] MEDS: ENOXAPARIN 40MG/0.4ML SYR SUBCUT SCH (10:01)
[2018-04-17 10:35] LABS: CHLORIDE 98 mEq/L (98-107)
[2018-04-17 10:40] LABS: PHOSPHORUS 2.9 mg/dL (2.5-4.9)
[2018-04-17] MEDS: MAGNESIUM OXIDE 400MG TABLET PO SCH ×2 (12:07→22:47)
[2018-04-17] MEDS: BLOOD SUGAR DIAGNOSTIC STRIP TEST SCH (16:55)
[2018-04-17 20:00] VITALS: BP 93/62
[2018-04-18 08:00] VITALS: BP 106/63
[2018-04-18] MEDS: MEGESTROL ACETATE 400 MG/10 ML UDC PO SCH ×2 (08:30→16:56)
[2018-04-18] MEDS: ASPIRIN 81MG TABLET PO SCH (08:30)
[2018-04-18] MEDS: MAGNESIUM OXIDE 400MG TABLET PO SCH ×2 (08:30→21:44)
[2018-04-18] MEDS: ENOXAPARIN 40MG/0.4ML SYR SUBCUT SCH (08:30)
[2018-04-18] MEDS: DOCUSATE SODIUM 250MG CAPSULE PO SCH (08:30)
[2018-04-18] MEDS: FUROSEMIDE 40MG TABLET PO SCH (08:31)
[2018-04-18] MEDS: LOSARTAN POTASSIUM 25 MG TABLET PO SCH (08:42)
[2018-04-18] MEDS: BLOOD SUGAR DIAGNOSTIC STRIP TEST SCH ×2 (08:48→16:59)
[2018-04-18 20:00] VITALS: BP 88/69
[2018-04-19 07:37] LABS: CHLORIDE 100 mEq/L (98-107)
[2018-04-19 07:47] LABS: PHOSPHORUS 2.3 mg/dL (2.5-4.9)
[2018-04-19 08:00] VITALS: BP 104/63
[2018-04-19] MEDS: DOCUSATE SODIUM 250MG CAPSULE PO SCH (08:43)
[2018-04-19] MEDS: MAGNESIUM OXIDE 400MG TABLET PO SCH ×2 (08:43→21:52)
[2018-04-19] MEDS: FUROSEMIDE 40MG TABLET PO SCH (08:43)
[2018-04-19] MEDS: MEGESTROL ACETATE 400 MG/10 ML UDC PO SCH ×2 (08:48→17:13)
[2018-04-19] MEDS: LOSARTAN POTASSIUM 25 MG TABLET PO SCH (08:48)
[2018-04-19] MEDS: ASPIRIN 81MG TABLET PO SCH (08:48)
[2018-04-19] MEDS: ENOXAPARIN 40MG/0.4ML SYR SUBCUT SCH (08:51)
[2018-04-19] MEDS: BLOOD SUGAR DIAGNOSTIC STRIP TEST SCH ×2 (09:00→17:26)
[2018-04-19 09:57] LABS: BASOPHILS % 0.1 % (0.0-2.0); EOSINOPHILS % 6.6 % (0.0-5.0); HEMOGLOBIN. 14.7 g/dL (14.0-18.0); LYMPHOCYTES % 35.9 % (20.0-50.0); MEAN CORPUSCULAR HEMOGLOBIN 29.5 pg (28.0-32.0); MEAN CORPUSCULAR VOLUME 86.2 fL (80.0-94.0); MEAN PLATELET VOLUME 9.2 fl (7.4-10.4); MONOCYTES % 10.1 % (2.0-8.0); NEUTROPHILS % 47.3 % (40.0-76.0); PLATELET 230 x1000/uL (130-400); RED BLOOD CELL COUNT 4.99 mill/uL (4.7-6.1); RED CELL DISTRIBUTION WIDTH 19.3 % (11.6-14.6)
[2018-04-19] MEDS: POTASSIUM-SODIUM PHOSPHATE POWDER PACKET PO SCH (17:13)
[2018-04-19 20:00] VITALS: BP 106/61
[2018-04-20 08:00] VITALS: BP 114/72
[2018-04-20] MEDS: BLOOD SUGAR DIAGNOSTIC STRIP TEST SCH (09:00)
[2018-04-20] MEDS: FUROSEMIDE 40MG TABLET PO SCH (10:19)
[2018-04-20] MEDS: MEGESTROL ACETATE 400 MG/10 ML UDC PO SCH (10:19)
[2018-04-20] MEDS: MAGNESIUM OXIDE 400MG TABLET PO SCH (10:19)
[2018-04-20] MEDS: LOSARTAN POTASSIUM 25 MG TABLET PO SCH (10:19)
[2018-04-20] MEDS: POTASSIUM-SODIUM PHOSPHATE POWDER PACKET PO SCH (10:19)
[2018-04-20] MEDS: ENOXAPARIN 40MG/0.4ML SYR SUBCUT SCH (10:20)
[2018-04-20] MEDS: DOCUSATE SODIUM 250MG CAPSULE PO SCH (10:20)
[2018-04-20] MEDS: ASPIRIN 81MG TABLET PO SCH (10:20)
[2018-04-20 11:42] LABS: HEMATOCRIT. 47.2 % (42.0-52.0); HEMOGLOBIN. 15.4 g/dL (14.0-18.0); MEAN CORPUSCULAR HEMOGLOBIN 28.6 pg (28.0-32.0); MEAN CORPUSCULAR VOLUME 87.6 fL (80.0-94.0); MEAN PLATELET VOLUME 9.1 fl (7.4-10.4); PLATELET 208 x1000/uL (130-400); RED BLOOD CELL COUNT 5.38 mill/uL (4.7-6.1); RED CELL DISTRIBUTION WIDTH 19.5 % (11.6-14.6)
[2018-04-20 13:14] LABS: PHOSPHORUS 2.2 mg/dL (2.5-4.9)
[2018-04-20 14:57] VITALS: BP 140/70
[2018-04-20 17:48] LABS: PLATELET ESTIMATE NORMAL
[2018-04-20] MEDS ORDERED: ASCORBIC ACID 250 MG TABLET PO SCH (21:00)
[2018-04-21] MEDS ORDERED: ZINC SULFATE 220 MG ( 50 ) CAPSULE PO SCH (09:00)
[2018-04-21] MEDS ORDERED: MULTIVITAMINS,THER W-MINERALS TABLET PO SCH (09:00)
== END 2018-04-20 18:05 | DRG 947 ==
PROVIDERS: ADMIT Physical Medicine & Rehabilitation Spinal Cord Injury Medicine; ATTEND Internal Medicine
DX: R53.81 Other malaise (principal); I50.23 Acute on chronic systolic (congestive) heart failure; I13.0 Hypertensive heart and chronic kidney disease with heart failure and stage 1 through stage 4 chronic kidney disease, or unspecified chronic kidney disease; N17.9 Acute kidney failure, unspecified; E87.1 Hypo-osmolality and hyponatremia; Z68.42 Body mass index [BMI] 45.0-49.9, adult; I42.9 Cardiomyopathy, unspecified; I42.0 Dilated cardiomyopathy; I25.10 Atherosclerotic heart disease of native coronary artery without angina pectoris; R53.1 Weakness; I48.0 Paroxysmal atrial fibrillation; Z79.899 Other long term (current) drug therapy; Z79.82 Long term (current) use of aspirin; Z95.810 Presence of automatic (implantable) cardiac defibrillator; G47.30 Sleep apnea, unspecified; R26.9 Unspecified abnormalities of gait and mobility; G31.84 Mild cognitive impairment of uncertain or unknown etiology; E11.22 Type 2 diabetes mellitus with diabetic chronic kidney disease; E66.9 Obesity, unspecified; E78.00 Pure hypercholesterolemia, unspecified; E78.5 Hyperlipidemia, unspecified; E83.39 Other disorders of phosphorus metabolism; E83.51 Hypocalcemia; E87.5 Hyperkalemia; E87.6 Hypokalemia; F09 Unspecified mental disorder due to known physiological condition; F39 Unspecified mood [affective] disorder; N18.3 Chronic kidney disease, stage 3 (moderate); Z82.49 Family history of ischemic heart disease and other diseases of the circulatory system
CPT/HCPCS: 36415; 71045; 80048; 80053; 80061; 82306; 82550; 82607; 82728; 82746; 82962; 83036; 83520; 83540; 83550; 83735; 84100; 84134; 84153; 84439; 84443; 84481; 84630; 85025; 86376; 92523; 93005; 93970; 93971; 97110; 97112; 97116; 97150; 97162; 97167; 97530; 97535; A6261; G0515; J1650; G0103